=== PATIENT | female | born 1930 | race Caucasian/White ===

== ENCOUNTER 2017-04-22 07:24 | Emergency (ER) | payer MEDICARE ==
[~2017-04-22] VITALS: Ht 167.6 cm; Wt 72.6 kg
[2017-04-22] MEDS ORDERED: LEVO25TA5 (07:56)
[2017-04-22] MEDS ORDERED: ACYC800T (07:56)
[2017-04-22] MEDS ORDERED: CEPH500C (07:56)
[2017-04-22 07:58] LABS: BASOPHILS % (AUTO) 0 % (0-10); EOSINOPHILS # (AUTO) 0.1 10^3/uL (0.0-0.3); EOSINOPHILS % (AUTO) 1 % (0-10); LYMPHOCYTES # (AUTO) 1.5 X 10^3 (1.0-4.0); LYMPHOCYTES % (AUTO) 14 % (12-44); MEAN CORPUSCULAR HEMOGLOBIN 29 PG (25-34); MEAN CORPUSCULAR HGB CONC 33 G/DL (32-36); MEAN CORPUSCULAR VOLUME 88 FL (80-99); MEAN PLATELET VOLUME 10.5 FL (7.4-10.4); MONOCYTES % (AUTO) 9 % (0-12); NEUTROPHILS # (AUTO) 8.5 X 10^3 (1.8-7.8); NEUTROPHILS % (AUTO) 76 % (42-75); PLATELET COUNT 273 10^3/uL (130-400); RED BLOOD COUNT 4.25 10^6/uL (4.35-5.85); RED CELL DISTRIBUTION WIDTH 13.6 % (10.0-14.5); WHITE BLOOD COUNT 11.2 10^3/uL (4.3-11.0)
[2017-04-22 08:10] LABS: ALANINE AMINOTRANSFERASE 10 U/L (0-55); ALBUMIN 3.5 GM/DL (3.2-4.5); AMYLASE 34 U/L (25-125); ANION GAP 11 MMOL/L (5-14); ASPARTATE AMINO TRANSFERASE 12 U/L (5-34); BILIRUBIN,TOTAL 0.6 MG/DL (0.1-1.0); BLOOD UREA NITROGEN 20 MG/DL (7-18); BUN/CREATININE RATIO 22; CALCIUM 8.9 MG/DL (8.5-10.1); CARBON DIOXIDE 21 MMOL/L (21-32); CHLORIDE 106 MMOL/L (98-107); CREATININE SERUM 0.92 MG/DL (0.60-1.30); GFR ESTIMATED 57; GLUCOSE 115 MG/DL (70-105); LIPASE 4 U/L (8-78); POTASSIUM 3.9 MMOL/L (3.6-5.0); SODIUM 138 MMOL/L (135-145); TOTAL PROTEIN 6.9 GM/DL (6.4-8.2)
[2017-04-22 08:17] LABS: MYOGLOBIN SERUM 68.5 NG/ML (10.0-92.0); TROPONIN I < 0.30 NG/ML (<0.30)
--- NOTE | 2017-04-22 08:23 | Diagnostic Imaging Report ---
INDICATION: Chest discomfort. COMPARISON: 05/02/2015. FINDINGS: Right lower lobe patchy airspace consolidations. A small right pleural effusion is present. No pneumothorax. Heart is borderline enlarged. IMPRESSION: 1. Right basilar patchy opacities may relate to aspiration or pneumonia. 2. Small right pleural effusion is present. Dictated by: Dictated on workstation # [id number]
[2017-04-22 08:38] LABS: BILIRUBIN,URINE NEGATIVE (NEGATIVE); KETONES,URINE 2+ (NEGATIVE); LEUKOCYTE ESTERASE ,URINE 1+ (NEGATIVE); NITRITE,URINE NEGATIVE (NEGATIVE); PH,URINE 5 (5-9); PROTEIN,URINE NEGATIVE (NEGATIVE); UROBILINOGEN,URINE NORMAL (NORMAL)
--- NOTE | 2017-04-22 08:50 | ED General ---
General Chief Complaint: Chest Pain Stated Complaint: CHEST DISCOMFORT,LABORED BREATHING Nursing Triage Note: WOKE UP TUESDAY AM WITH CHEST PAIN THAT RADIATED INTO HER NECK AND COLLAR BONE. ON TUE THE PAIN MOVED TO HER BACK. SEEN AT [facility] OFFICE ON TUESDAY AND GIVEN A SCRIPT FOR SHINGLES AND A UTI. PT DID NOT START ANTIBIOTIC BECAUSE SHE DOES NOT THINK SHE HAS A UTI. TODAY STATES IT HURTS TO TAKE A DEEP BREATH AND TO LAY DOWN. Nursing Sepsis Screen: No Definite Risk Source of Information: Patient (TALKS NON-STOP AT LENGTH), Family (DAUGHTER) History of Present Illness Time Seen by Provider: 07:45 Initial Comments PT ARRIVES VIA POV WITH DAUGHTER (DAUGHTER WORKS IN DR. SMALL' OFFICE) PT STATES ON TUESDAY AT 0300 SHE "HURT ALL OVER" POINTING TO ENTIRE CHEST-- STATES " I COULDN'T WAKE UP -LIKE I WAS HAVING A DREAM" BUT HAD TO SIT UP IN CHAIR ALL NIGHT--COULD NOT LAY DOWN DUE TO DISCOMFORT STATES SHE HAS HAD BURNING PAIN IN HER RIGHT SHOULDER BLADE FOR SEVERAL WEEKS STATES LAST NIGHT SHE BEGAN HAVING PAIN IN LATERAL RIGHT NECK--WORSE WITH DEEP BREATHS--NO PAIN NOW HAS HAD PAIN IN MID CHEST ALL NIGHT AND COULD NOT SLEEP AT ALL LAST NIGHT AND HAD TO SIT UP IN A CHAIR ALL NIGHT ALSO HAS HAD SHARP/INTERMITTENT PAIN IN RIGHT LOWER/LATERAL AND POSTERIOR RIBS-- WORSE WITH COUGHING COUGHED A COUPLE OF TIMES YESTERDAY, BUT OTHERWISE NO SIGNIFICANT COUGH. NO FEVER CANNOT STATE IF SHE IS ACTUALLY SHORT OF BREATH OR NOT, BUT DOES NOT THINK SO. NO SWELLING IN LEGS/FEET OR PAIN IN CALVES. NO RECENT TRAVEL/PROLONGED SITTING, ETC. SEEN BY SUPERVISOR CURING ROOM AT DR. 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 QUAN Allergies and Home Medications Allergies Coded Allergies: No Known Drug Allergies (Unverified , 04/22/17) Home Medications Acyclovir 800 Mg Tablet, (Reported) Apixaban 5 Mg Tablet, 10 MG PO BID, #70 2 TABLETS TWICE DAILY X 7 DAYS, THEN TAKE 1 PILL TWICE A DAY Prescribed by: ELAN HICKMAN on 04/22/17 1048 Cefdinir 300 Mg Capsule, 300 MG PO BID, #20 Prescribed by: ELAN HICKMAN on 04/22/17 1048 Cephalexin 500 Mg Capsule, (Reported) Famotidine 40 Mg Tablet, 40 MG PO DAILY, #30 Prescribed by: ELAN HICKMAN on 04/22/17 1048 Hydrocodone/Acetaminophen 1 Each Tablet, 1 EACH PO Q4H, #20 Prescribed by: ELAN HICKMAN on 04/22/17 1048 Levothyroxine Sodium 25 Mcg Tablet, (Reported) Constitutional: no symptoms reported, No chills, No diaphoresis, No dizziness, No fever EENTM: no symptoms reported Respiratory: see HPI, cough, orthopnea (??), No phlegm, No short of breath, No wheezing Cardiovascular: see HPI, chest pain, No edema, No palpitations, No syncope Gastrointestinal: no symptoms reported, No abdominal pain, No nausea, No vomiting Genitourinary: no symptoms reported Musculoskeletal: see HPI, back pain Skin: no symptoms reported, No rash Psychiatric/Neurological: See HPI, Anxiety, Denies Headache, Denies Numbness, Denies Paresthesia, Denies Seizure, Denies Tingling, Denies Weakness Hematologic/Lymphatic: No Symptoms Reported Immunological/Allergic: no symptoms reported Past Ilppacp-Ojvlom-Lnvyth Hx Patient Social History Alcohol Use: Denies Use Recreational Drug Use: No Smoking Status: Never a Smoker Recent Foreign Travel: No Contact w/Someone Who Travel: No Recent Infectious Disease Expo: No Recent Hopitalizations: No Surgeries History of Surgeries: Yes Surgeries: Gallbladder, Hysterectomy Respiratory History of Respiratory Disorde: No Cardiovascular History of Cardiac Disorders: No Neurological History of Neurological Disord: No Genitourinary History of Genitourinary Disor: No Gastrointestinal History of Gastrointestinal Di: No Musculoskeletal History of Musculoskeletal Dis: No Endocrine History of Endocrine Disorders: Yes Endocrine Disorders: Hypothyroidsim HEENT History of HEENT Disorders: No Cancer History of Cancer: No Psychosocial History of Psychiatric Problem: No Integumentary History of Skin or Integumenta: No Physical Exam Vital Signs Vital Sign - Last 12Hours 04/22/17 04/22/17 07:26 11:35 Temp 98.0 Pulse 96 Resp 18 B/P (MAP) 132/64 Pulse Ox 94 O2 Delivery Room Air Capillary Refill : Less Than 3 Seconds General Appearance: No Apparent Distress, WD/WN, Anxious HEENT: PERRL/EOMI, TMs Normal, Normal ENT Inspection, Pharynx Normal Neck: Full Range of Motion, Normal Inspection, Non Tender, Supple, No Carotid Bruit, No JVD Respiratory: Chest Non Tender, Normal Breath Sounds, No Accessory Muscle Use, No Respiratory Distress Cardiovascular: Regular Rate, Rhythm, No Edema, No JVD, No Murmur, Normal Peripheral Pulses Gastrointestinal: Normal Bowel Sounds, No Organomegaly, No Pulsatile Mass, Non Tender, Soft Back: Normal Inspection, No CVA Tenderness, No Vertebral Tenderness Extremity: Normal Capillary Refill, Normal Inspection, Normal Range of Motion, Non Tender, No Calf Tenderness, No Pedal Edema Neurologic/Psychiatric: Alert, Oriented x3, No Motor/Sensory Deficits, 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 II- 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 Norm as Tested Skin: Normal Color, Warm/Dry, No Rash Progress/Results/Core Measures Suspected Sepsis Recent Fever Within 48 Hours: No Infection Criteria Present: None New/Unexplained Altered Menta: No Sepsis Screen: No Definite Risk Sepsis Diagnosis: SIRS Temperature:98.0 Pulse: 96 Respiratory Rate: 18 Laboratory Tests 04/22/17 07:40: White Blood Count 11.2H Blood Pressure 132 /64 Mean: 86 Laboratory Tests 04/22/17 07:40: Creatinine 0.92, Platelet Count 273, Total Bilirubin 0.6 04/22/17 08:16: INR Comment 1.0 Results/Orders Lab Results Laboratory Tests Test 04/22/17 07:40 04/22/17 08:16 04/22/17 08:30 04/22/17 09:16 Range/Units White Blood Count 11.2 H 4.3-11.0 10^3/uL Red Blood Count 4.25 L 4.35-5.85 10^6/uL Hemoglobin 12.3 11.5-16.0 G/DL Hematocrit 37 35-52 % Mean Corpuscular Volume 88 80-99 FL Mean Corpuscular Hemoglobin 29 25-34 PG Mean Corpuscular Hemoglobin Concent 33 32-36 G/DL Red Cell Distribution Width 13.6 10.0-14.5 % Platelet Count 273 130-400 10^3/uL Mean Platelet Volume 10.5 H 7.4-10.4 FL Neutrophils (%) (Auto) 76 H 42-75 % Lymphocytes (%) (Auto) 14 12-44 % Monocytes (%) (Auto) 9 0-12 % Eosinophils (%) (Auto) 1 0-10 % Basophils (%) (Auto) 0 0-10 % Neutrophils # (Auto) 8.5 H 1.8-7.8 X 10^3 Lymphocytes # (Auto) 1.5 1.0-4.0 X 10^3 Monocytes # (Auto) 1.0 0.0-1.0 X 10^3 Eosinophils # (Auto) 0.1 0.0-0.3 10^3/uL Basophils # (Auto) 0.0 0.0-0.1 10^3/uL Sodium Level 138 135-145 MMOL/L Potassium Level 3.9 3.6-5.0 MMOL/L Chloride Level 106 98-107 MMOL/L Carbon Dioxide Level 21 21-32 MMOL/L Anion Gap 11 5-14 MMOL/L Blood Urea Nitrogen 20 H 7-18 MG/DL Creatinine 0.92 0.60-1.30 MG/DL Estimat Glomerular Filtration Rate 57 BUN/Creatinine Ratio 22 Glucose Level 115 H 70-105 MG/DL Calcium Level 8.9 8.5-10.1 MG/DL Magnesium Level 2.0 1.8-2.4 MG/DL Total Bilirubin 0.6 0.1-1.0 MG/DL Aspartate Amino Transf (AST/SGOT) 12 5-34 U/L Alanine Aminotransferase (ALT/SGPT) 10 0-55 U/L Alkaline Phosphatase 63 40-136 U/L Myoglobin 68.5 10.0-92.0 NG/ML Troponin I < 0.30 <0.30 NG/ML B-Type Natriuretic Peptide 34.8 <100.0 PG/ML Total Protein 6.9 6.4-8.2 GM/DL Albumin 3.5 3.2-4.5 GM/DL Amylase Level 34 25-125 U/L Lipase 4 L 8-78 U/L Prothrombin Time 13.4 12.2-14.7 SEC INR Comment 1.0 0.8-1.4 Activated Partial Thromboplast Time 20 L 24-35 SEC Urine Color YELLOW Urine Clarity CLEAR Urine pH 5 5-9 Urine Specific [place] 1.015 L 1.016-1.022 Urine Protein NEGATIVE NEGATIVE Urine Glucose (UA) NEGATIVE NEGATIVE Urine Ketones 2+ H NEGATIVE Urine Nitrite NEGATIVE NEGATIVE Urine Bilirubin NEGATIVE NEGATIVE Urine Urobilinogen NORMAL NORMAL MG/DL Urine Leukocyte Esterase 1+ H NEGATIVE Urine RBC (Auto) 3+ H NEGATIVE Urine RBC NONE /HPF Urine WBC 10-25 H /HPF Urine Squamous Epithelial Cells 25-50 H /HPF Urine Renal Epithelial Cells 2-5 /HPF Urine Crystals NONE /LPF Urine Bacteria MODERATE H /HPF Urine Casts PRESENT /LPF Urine Hyaline Casts 5-10 H /LPF Urine Mucus SMALL H /LPF Urine Culture Indicated YES Erythrocyte Sedimentation Rate 60 H 0-30 MM/HR Micro Results Microbiology 04/22/17 Urine Culture - Preliminary, Resulted My Orders Orders - ELAN HICKMAN DO Ekg Tracing (04/22/17 07:42) Continuous Ekg Monitoring (04/22/17 07:42) Troponin I (04/22/17 07:50) Chest 1 View, Ap/Pa Only (04/22/17 07:50) Saline Lock/Iv-Start (04/22/17 07:50) Monitor-Rhythm Ecg Trace Only (04/22/17 07:50) Cbc With Automated Diff (04/22/17 07:50) Magnesium (04/22/17 07:50) Comprehensive Metabolic Panel (04/22/17 07:50) Myoglobin Serum (04/22/17 07:50) Protime With Inr (04/22/17 07:50) Partial Thromboplastin Time (04/22/17 07:50) O2 (04/22/17 07:50) Saline Lock/Iv-Start (04/22/17 07:50) Lipase (04/22/17 07:50) Amylase (04/22/17 07:50) BNP (04/22/17 07:50) Ua Culture If Indicated (04/22/17 08:17) Erythrocyte Sedimentation Rate (04/22/17 08:19) Ct Angio Chest W (04/22/17 08:58) Urine Culture (04/22/17 08:30) Iohexol Injection (Omnipaque 350 Mg/Ml 1 (04/22/17 10:00) Sodium Chloride Flush (Catheter Flush Sy (04/22/17 10:00) Ns (Ivpb) (Sodium Chloride 0.9% Ivpb Bag (04/22/17 10:00) Pharmacy Communication (Pharmacy Communi (04/22/17 10:00) Saline Lock/Iv-Start (04/22/17 10:14) Ns Iv 1000 Ml (Sodium Chloride 0.9%) (04/22/17 10:14) Enoxaparin Injection (Lovenox Injection) (04/22/17 10:30) Medications Given in ED Vital Signs/I&O Capillary Refill : Less Than 3 Seconds Blood Pressure Mean: 86 Progress Note : Progress Note UNEVENTFUL ER STAY ALL VITALS REMAINED STABLE, O2 SATS IN MID TO UPPER 90'S NO C/O CHEST DISCOMFORT OR SHORTNESS OF BREATH DURING ER STAY ECG Initial ECG Impression Time: 07:34 Initial ECG Rate: 101 Initial ECG Rhythm: Normal Sinus Initial ECG Impression: Nonspecific Changes Initial ECG Comparisson: No Previous ECG Available Diagnostic Imaging Comments CXR--RIGHT BASILAR PATCHY INFILTRATE--ASPIRATION OR PNEUMONIA, SMALL RIGHT PLEURAL EFFUSION--PER RADIOLOGIST REPORT @ 0850 CT CHEST ANGIOGRAM--P.E. IN RLL, WITH EFFUSION VS ATELECTASIS VS EARLY INFARCT-- PER RADIOLOGIST VIA PHONE AT 1017 Reviewed: Reviewed by Me, Discussed w/Radiologist Departure Communication (Admissions) Family Conversation DAUGHTER STATES THAT IF HER INSURANCE DOES NOT COVER [place], THAT SHE CAN GET SAMPLES FROM DR. 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 VU'S CELL 1026--SPOKE WITH DR. VU, ADVISES ELIQUIS AND HAVE PT FOLLOW UP WITH DR. QUAN ON TUESDAY, PT DOES NOT MEET ADMISSION CRITERIA AT THIS TIME. PT IS ASYMPTOMATIC AND ALL VITALS ARE STABLE 1030--SPOKE WITH DR. QUAN. SHE WILL SEE PT IN OFFICE ON TUESDAY. Impression Impression: Primary Impression: Right pulmonary embolus Additional Impression: UTI (urinary tract infection) Disposition: 01 HOME, SELF-CARE Condition: Stable Departure-Patient Inst. Referrals: FLORENCE QUAN MD (PCP/Family) Primary Care Physician Patient Instructions: Pulmonary Embolism (Blood Clot in the Lungs) (DC), Urinary Tract Infection, Adult (DC) Add. Discharge Instructions: HOME, REST FOLLOW UP WITH DR. QUAN ON TUESDAY FOR FURTHER CARE RETURN TO ER IF SYMPTOMS WORSEN All discharge instructions reviewed with patient and/or family. Voiced understanding. Scripts Famotidine (Pepcid) 40 Mg Tablet 40 MG PO DAILY, #30 TAB Prov: ELAN HICKMAN DO 04/22/17 Cefdinir (Cefdinir) 300 Mg Capsule 300 MG PO BID for FOR INFECTION, #20 CAP Prov: ELAN HICKMAN DO 04/22/17 Hydrocodone/Acetaminophen (Hydrocodon -Acetaminophen 5-325) 1 Each Tablet 1 EACH PO Q4H, #20 TAB Prov: ELAN HICKMAN DO 04/22/17 Apixaban (Eliquis) 5 Mg Tablet 10 MG PO BID, #70 TAB 2 TABLETS TWICE DAILY X 7 DAYS, THEN TAKE 1 PILL TWICE A DAY Prov: ELAN HICKMAN DO 04/22/17 ELAN HICKMAN DO Apr 22, 2017 08:50
[2017-04-22 08:54] LABS: PROTHROMBIN TIME PATIENT 13.4 SEC (12.2-14.7)
[2017-04-22 09:05] LABS: SQUAMOUS EPITHELIAL CELL,UR 25-50 /HPF
[2017-04-22] MEDS ORDERED: CATHETER FLUSH 10 ML SYR IV PRN (10:00)
[2017-04-22] MEDS ORDERED: IOHEXOL 350 MG/ML 100 ML (OMNIPAQUE 350) VIAL IV ONE (10:00)
[2017-04-22] MEDS ORDERED: NS 100 ML (IVPB) BAG IV ONE (10:00)
[2017-04-22] MEDS ORDERED: NS IV 1000 ML 1,000 ML IV ONE (10:14)
--- NOTE | 2017-04-22 10:28 | Diagnostic Imaging Report ---
PROCEDURE: CT angiography of the chest with contrast. TECHNIQUE: Multiple contiguous axial images were obtained through the chest after uneventful bolus administration of intravenous contrast. Reconstructed CTA MIP acquisitions were also performed. INDICATION: Chest pain. Possible pulmonary embolus. COMPARISON: None FINDINGS: There is a large intraluminal thrombus seen within the right lower lobe segmental arteries particularly the posterior medial branches. No additional embolus is seen. There is a small right pleural effusion. There is mild right basilar atelectasis or infiltrate. There is mild bronchiectasis noted particularly to the lower lobes bilaterally. There is pleural-parenchymal scarring in the lung apices. There is no pneumothorax. There is no adenopathy. There is a small hiatal hernia. No acute abnormalities seen in the visualized abdomen. No acute osseous abnormality is suspected IMPRESSION: 1. There is pulmonary embolus to segmental basilar branches of the right lower lobe. There is a small right pleural effusion with right basilar airspace disease, possibility of atelectasis, infiltrate or developing infarct. 2. Mild bilateral bronchiectasis, particularly to the lower lobes. Pleural parenchymal scarring in the lung apices bilaterally. 3. Small hiatal hernia. Findings were phoned to Dr. Bishop at 10:19 AM on 04/22/[address] Lena Coelho Dictated by: Dictated on workstation # [id number]
[2017-04-22] MEDS ORDERED: ENOXAPARIN 80 MG/0.8 ML (LOVENOX) SYR SC ONE (10:30)
[2017-04-22] MEDS ORDERED: APIX5TAB PO (10:48)
[2017-04-22] MEDS ORDERED: CEFD300C3 PO (10:48)
[2017-04-22] MEDS ORDERED: FAMO40TA72 PO (10:48)
[2017-04-22] MEDS ORDERED: HYDR-3812 PO (10:48)
[2017-04-22 11:35] VITALS: BP 134/72
== END 2017-04-22 11:35 | disposition home or self-care (01) ==
LOC: EDUNIT# 07:24 → ER 07:27
DX: I26.99 Other pulmonary embolism without acute cor pulmonale (principal); N39.0 Urinary tract infection, site not specified; E03.9 Hypothyroidism, unspecified; Z79.01 Long term (current) use of anticoagulants; Z90.710 Acquired absence of both cervix and uterus
CPT/HCPCS: 36415; 71010; 71275; 80053; 81000; 82150; 83690; 83735; 83874; 83880; 84484; 85025; 85610; 85652; 85730; 87088; 93041

== ENCOUNTER → 2017-04-27 | Outpatient (CLI) | payer MEDICARE ==
[~2017-04-27] MED LIST: ACYC800T; APIX5TAB PO; CEFD300C3 PO; CEPH500C; FAMO40TA72 PO; HYDR-3812 PO; LEVO25TA5
--- NOTE | 2017-04-27 11:08 | Diagnostic Imaging Report ---
EXAMINATION: Left lower extremity duplex venous ultrasound. TECHNIQUE: DVT protocol. Multiple sonographic images with color Doppler and waveform interrogation were performed of the left lower extremity veins with compression and augmentation maneuvers. INDICATION: Left leg pain. FINDINGS: The left lower extremity veins from the groin to below the knee veins were examined with normal color-flow, compressibility and waveform demonstrated. The great saphenous vein is patent. IMPRESSION: No evidence of DVT in the left lower extremity. Dictated by: Dictated on workstation # [id number]
--- NOTE | 2017-04-27 11:42 | Diagnostic Imaging Report ---
PROCEDURE: US Carotid Duplex Bilateral. TECHNIQUE: Multiple real-time grayscale images were obtained over the carotid arteries in various projections bilaterally. Additional duplex Doppler and color Doppler images were also obtained. INDICATION: Right neck pain. FINDINGS: There is minimal atherosclerotic plaque seen in the carotid arteries on grayscale images. Color Doppler demonstrates patency of the common, internal and external carotid arteries. There is antegrade flow noted in the vertebral arteries bilaterally. Peak systolic velocities in the right ICA are 87, 79, and 64 cm/s and on the left side 83, 115, and 94 cm/s. ICA/CCA ratios are up to 1.2 on the right and up to 1 on the left. IMPRESSION: Mild atherosclerotic plaque in the carotid arteries with estimated underlying stenosis in the range of 0-40% bilaterally. Dictated by: Dictated on workstation # [id number]
== END ==
LOC: RAD 09:38
PROVIDERS: ATTEND Nurse Practitioner Family
DX: M79.605 Pain in left leg (principal); I65.23 Occlusion and stenosis of bilateral carotid arteries; E78.2 Mixed hyperlipidemia
CPT/HCPCS: 93880

== ENCOUNTER → 2017-04-29 | Outpatient (CLI) | payer MEDICARE | LOC: CARD 10:59 | PROVIDERS: ATTEND Nurse Practitioner Family | DX: I26.99 Other pulmonary embolism without acute cor pulmonale (principal) | CPT/HCPCS: 93306 ==

== ENCOUNTER → 2017-04-29 | Outpatient (CLI) | payer MEDICARE ==
--- NOTE | 2017-04-29 16:40 | Diagnostic Imaging Report ---
PROCEDURE: US right lower extremity venous. TECHNIQUE: Multiple real-time grayscale images were obtained over the right lower extremity in various projections. Additional duplex Doppler and color Doppler images were also obtained. INDICATION: History of recent PE. Right leg pain. COMPARISON: 04/27/2017. FINDINGS: Color Doppler imaging shows normal color flow enhancement from external iliac vein throughout the lower extremity on the right to the ankle. Calf compression shows normal augmentation of flow at the popliteal level. No evidence of popliteal cyst. IMPRESSION: No evidence of developing venous thrombosis right lower extremity. Dictated by: Dictated on workstation # [id number]
== END ==
LOC: RAD 11:00
PROVIDERS: ATTEND Internal Medicine Cardiovascular Disease
DX: M79.604 Pain in right leg (principal); Z86.711 Personal history of pulmonary embolism

== ENCOUNTER → 2017-05-02 | Outpatient (CLI) | payer MEDICARE | LOC: CARD 11:37 | PROVIDERS: ATTEND Internal Medicine Cardiovascular Disease | DX: I26.99 Other pulmonary embolism without acute cor pulmonale (principal); R07.89 Other chest pain; Z86.39 Personal history of other endocrine, nutritional and metabolic disease | CPT/HCPCS: 93225; 93226 ==

== ENCOUNTER → 2017-05-18 | Outpatient (CLI) | payer MEDICARE ==
--- NOTE | 2017-05-19 08:34 | Diagnostic Imaging Report ---
Bilateral screening mammogram 2D views with tomosynthesis The current study was also evaluated with a Computer Aided Detection (CAD) system. Indication: Screening. No current complaints stated on the questionnaire. COMPARISON: 03/13/2015. Findings: The breasts are composed of scattered fibroglandular densities. There are occasional benign-appearing calcifications Allowing for technique and positional differences, no suspicious change is seen. IMPRESSION: No significant change. ACR BI-RADS Category 2: Benign findings. Result letter will be mailed to the patient. Note: At least 10% of breast cancer is not imaged by mammography. Dictated by: Dictated on workstation # [id number]
== END ==
LOC: RAD 08:51
PROVIDERS: ATTEND Internal Medicine Hematology & Oncology
DX: Z12.31 Encounter for screening mammogram for malignant neoplasm of breast (principal); I26.99 Other pulmonary embolism without acute cor pulmonale
CPT/HCPCS: 77067

== ENCOUNTER 2017-06-03 05:29 | Outpatient (CLI) | payer MEDICARE ==
[~2017-06-03] VITALS: Ht 167.6 cm; Wt 72.6 kg
[~2017-06-03 05:29] MED LIST changes: +ACHD5005 PO; -HYDR-3812 PO; -LEVO25TA5; +LEVO25TA5 PO
[2017-06-03] MEDS ORDERED: FAMO40TA6 PO (14:56)
[2017-06-03] MEDS ORDERED: APIX5TAB PO (14:56)
== END 2017-06-03 14:57 ==
LOC: PREOP 05:29
PROVIDERS: ATTEND Internal Medicine
DX: Z01.818 Encounter for other preprocedural examination (principal); Z12.11 Encounter for screening for malignant neoplasm of colon

== ENCOUNTER 2017-06-10 06:54 | Day surgery (SDC) | payer MEDICARE ==
[~2017-06-10] VITALS: Ht 167.6 cm; Wt 72.6 kg
[~2017-06-10 06:54] MED LIST changes: +FAMO40TA6 PO
[2017-06-10] MEDS ORDERED: 1/2 NS IV SOLUTION 1,000 ML IV ONE ×2 (06:56→07:47)
--- OUTSIDE RECORDS SUMMARY | 2017-06-10 06:59 | XMS REPORT | Continuity of Care Document ---
Author Author [facility] Organization [facility] Address Unknown Phone Unavailable Allergies Active Description Code Type Severity Reaction Onset Reported/Identified Relationship to Patient Clinical Status Yes No Known Drug Allergies [id number] Drug Allergy Unknown N/A 04/22/2017 Medications There is no data. Problems Date Dx Coded Attending Type Code Diagnosis Diagnosed By 12/13/2013 FLORENCE QUAN MD Ot 724.3 SCIATICA 12/13/2013 FLORENCE QUAN MD Ot 729.5 PAIN IN LIMB 12/13/2013 FLORENCE QUAN MD Ot V57.1 PHYSICAL THERAPY NEC 03/13/2015 Ot V76.12 03/31/2015 SHIVAM GARCIA SUPPLY CRIB ATTENDANT Ot E66.9 03/31/2015 SHIVAM GARCIA SUPPLY CRIB ATTENDANT Ot M81.0 03/31/2015 SHIVAM GARCIA SUPPLY CRIB ATTENDANT Ot E66.9 03/31/2015 SHIVAM GARCIA SUPPLY CRIB ATTENDANT Ot M81.0 04/02/2015 SHIVAM GARCIAP Ot Z12.31 04/21/2015 SHIVAM GARCIAP Ot E66.9 04/21/2015 SHIVAM GARCIA SUPPLY CRIB ATTENDANT Ot M81.0 04/22/2017 SHIVAM GARCIA SUPPLY CRIB ATTENDANT Ot Z12.31 ENCNTR SCREEN MAMMOGRAM FOR MALIGNANT NE 04/22/2017 SHIVAM GARCIA SUPPLY CRIB ATTENDANT Ot E66.9 OBESITY, UNSPECIFIED 04/22/2017 SHIVAM GARCIA SUPPLY CRIB ATTENDANT Ot M81.0 AGE-RELATED OSTEOPOROSIS W/O CURRENT PAT 04/22/2017 ELAN HICKMAN DO Ot E03.9 HYPOTHYROIDISM, UNSPECIFIED 04/22/2017 TAWNYA HICKMAN DOA K Ot I26.99 OTHER PULMONARY EMBOLISM WITHOUT ACUTE C 04/22/2017 ELAN HICKMAN DO Ot N39.0 URINARY TRACT INFECTION, SITE NOT SPECIF 04/22/2017 ELAN HICKMAN DO K Ot R07.81 PLEURODYNIA 04/22/2017 MARYLOU TAWNYA ALFAROA K Ot Z79.01 WIRE DROPPER (CURRENT) USE OF ANTICOAGULANT 04/22/2017 MARYLOU DO ELAN K Ot Z90.710 ACQUIRED ABSENCE OF BOTH CERVIX AND UTER 04/28/2017 SHIVAM GARCIA SUPPLY CRIB ATTENDANT Ot Z12.31 ENCNTR SCREEN MAMMOGRAM FOR MALIGNANT NE 04/28/2017 SHIVAM GARCIAP Ot E66.9 OBESITY, UNSPECIFIED 04/28/2017 SHIVAM GARCIAP Ot M81.0 AGE-RELATED OSTEOPOROSIS W/O CURRENT PAT 04/28/2017 DIEUDONNE JOAQUIN APRN Ot E78.2 MIXED HYPERLIPIDEMIA 04/28/2017 DIEUDONNE JOAQUIN APRN Ot 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 04/28/2017 DIEUDONNE JOAQUIN APRN Ot M79.605 PAIN IN LEFT LEG 04/29/2017 MARYLOU TAWNYA ALFAROA K Ot E03.9 HYPOTHYROIDISM, UNSPECIFIED 04/29/2017 MARYLOU TAWNYA ALFAROA K Ot I26.99 OTHER PULMONARY EMBOLISM WITHOUT ACUTE C 04/29/2017 MARYLOU TAWNYA ALFAROA K Ot N39.0 URINARY TRACT INFECTION, SITE NOT SPECIF 04/29/2017 MARYLOU TAWNYA ALFAROA K Ot R07.81 PLEURODYNIA 04/29/2017 MARYLOU TAWNYA ALFRAOA K Ot Z79.01 WIRE DROPPER (CURRENT) USE OF ANTICOAGULANT 04/29/2017 MARYLOU DO ELAN K Ot Z90.710 ACQUIRED ABSENCE OF BOTH CERVIX AND UTER 04/29/2017 MAUREEN AUSTIN FACC, ALI FACP CCDS Ot R07.89 OTHER CHEST PAIN 04/29/2017 MAUREEN AUSTIN FACC, ALI FACP CCDS Ot R07.89 OTHER CHEST PAIN 04/29/2017 SHIVAM GARCIA SUPPLY CRIB ATTENDANT Ot Z12.31 ENCNTR SCREEN MAMMOGRAM FOR MALIGNANT NE 04/29/2017 SHIVAM GARCIAP Ot E66.9 OBESITY, UNSPECIFIED 04/29/2017 SHIVAM GARCIA SUPPLY CRIB ATTENDANT Ot M81.0 AGE-RELATED OSTEOPOROSIS W/O CURRENT PAT 04/29/2017 DIEUDONNE JOAQUIN APRN Ot E78.2 MIXED HYPERLIPIDEMIA 04/29/2017 DIEUDONNE JOAQUIN GERENTOLOGICAL PHYSIOTHERAPIST Ot 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 04/29/2017 DIEUDONNE JOAQUIN APRN Ot M79.605 PAIN IN LEFT LEG 04/29/2017 MAUREEN AUSTIN FACC, ALI FACP CCDS Ot I26.99 OTHER PULMONARY EMBOLISM WITHOUT ACUTE C 04/29/2017 MAUREEN AUSTIN FACC, ALI FACP CCDS Ot R07.89 OTHER CHEST PAIN 05/05/2017 DIEUDONNE JOAQUIN APRN Ot I26.99 OTHER PULMONARY EMBOLISM WITHOUT ACUTE C 05/08/2017 MAUREEN AUSTIN FACC, ALI FACP CCDS Ot I26.99 OTHER PULMONARY EMBOLISM WITHOUT ACUTE C 05/08/2017 MAUREEN AUSTIN FACC, ALI FACP CCDS Ot R07.89 OTHER CHEST PAIN 05/08/2017 MAUREEN AUSTIN FACC, ALI FACP CCDS Ot Z86.39 PERSONAL HISTORY OF ENDO, NUTRITIONAL AN 05/09/2017 DORIS PEREZ MD Ot E03.9 HYPOTHYROIDISM, UNSPECIFIED 05/09/2017 DORIS PEREZ MD Ot I26.99 OTHER PULMONARY EMBOLISM WITHOUT ACUTE C 05/09/2017 DORIS PEREZ MD Ot M19.91 PRIMARY OSTEOARTHRITIS, UNSPECIFIED SITE 05/09/2017 DORIS PEREZ MD Ot Z79.01 WIRE DROPPER (CURRENT) USE OF ANTICOAGULANT 05/09/2017 DORIS PEREZ MD Ot Z79.899 OTHER WIRE DROPPER (CURRENT) DRUG THERAPY 05/18/2017 DIEUDONNE JOAQUIN APRN Ot E78.2 MIXED HYPERLIPIDEMIA 05/18/2017 DIEUDONNE JOAQUIN APRN Ot 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 05/18/2017 DIEUDONNE JOAQUIN APRN Ot M79.605 PAIN IN LEFT LEG 05/24/2017 DIEUDONNE JOAQUIN APRN Ot I26.99 OTHER PULMONARY EMBOLISM WITHOUT ACUTE C 05/25/2017 MAUREEN AUSTIN FACC, ALI FACP CCDS Ot I26.99 OTHER PULMONARY EMBOLISM WITHOUT ACUTE C 05/25/2017 MAUREEN AUSTIN FACC, ALI FACP CCDS Ot R07.89 OTHER CHEST PAIN 05/25/2017 MAUREEN AUSTIN FACC, ALI FACP CCDS Ot Z86.39 PERSONAL HISTORY OF ENDO, NUTRITIONAL AN 05/26/2017 DIEUDONNE JOAQUIN APRN Ot E78.2 MIXED HYPERLIPIDEMIA 05/26/2017 DIEUDONNE JOAQUIN APRN Ot 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 05/26/2017 DIEUDONNE JOAQUIN APRN Ot M79.605 PAIN IN LEFT LEG 05/27/2017 MAUREEN MD FACC, ALI FACP CCDS Ot M79.604 PAIN IN RIGHT LEG 05/27/2017 MAUREEN AUSTIN FACC, ALI FACP CCDS Ot 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 06/03/2017 JEMALDIEUDONNE APRN Ot I26.99 OTHER PULMONARY EMBOLISM WITHOUT ACUTE C 06/03/2017 MAUREEN MD FACC, ALI FACP CCDS Ot I26.99 OTHER PULMONARY EMBOLISM WITHOUT ACUTE C 06/03/2017 MAUREEN AUSTIN FACC, ALI FACP CCDS Ot R07.89 OTHER CHEST PAIN 06/03/2017 MAUREEN AUSTIN FACC, ALI FACP CCDS Ot Z86.39 PERSONAL HISTORY OF ENDO, NUTRITIONAL AN 06/06/2017 YANELY SMALL MD Ot Z01.818 ENCOUNTER FOR OTHER PREPROCEDURAL EXAMIN 06/06/2017 YANELY SMALL MD Ot Z12.11 ENCOUNTER FOR SCREENING FOR MALIGNANT NE 06/08/2017 DORIS PEREZ MD Ot I26.99 OTHER PULMONARY EMBOLISM WITHOUT ACUTE C 06/08/2017 DORIS PEREZ MD Ot Z12.31 ENCNTR SCREEN MAMMOGRAM FOR MALIGNANT NE 06/09/2017 MAUREEN AUSTIN FACZach, ALI FACP CCDS Ot M79.604 PAIN IN RIGHT LEG 06/09/2017 MAUREEN AUSTIN FACC, ALI FACP CCDS Ot 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 Procedures There is no data. Results Test Result Range Complete blood count (CBC) with automated white blood cell (WBC) differential - 04/22/17 07:40 Blood leukocytes automated count (number/volume) 11.2 10*3/uL 4.3-11.0 Blood erythrocytes automated count (number/volume) 4.25 10*6/uL 4.35-5.85 Venous blood hemoglobin measurement (mass/volume) 12.3 g/dL 11.5-16.0 Blood hematocrit (volume fraction) 37 % 35-52 Automated erythrocyte mean corpuscular volume 88 [foz_us] 80-99 Automated erythrocyte mean corpuscular hemoglobin (mass per erythrocyte) 29 pg 25-34 Automated erythrocyte mean corpuscular hemoglobin concentration measurement ( mass/volume) 33 g/dL 32-36 Automated erythrocyte distribution width ratio 13.6 % 10.0-14.5 Automated blood platelet count (count/volume) 273 10*3/uL 130-400 Automated blood platelet mean volume measurement 10.5 [foz_us] 7.4-10.4 Automated blood neutrophils/100 leukocytes 76 % 42-75 Automated blood lymphocytes/100 leukocytes 14 % 12-44 Blood monocytes/100 leukocytes 9 % 0-12 Automated blood eosinophils/100 leukocytes 1 % 0-10 Automated blood basophils/100 leukocytes 0 % 0-10 Blood neutrophils automated count (number/volume) 8.5 10*3 1.8-7.8 Blood lymphocytes automated count (number/volume) 1.5 10*3 1.0-4.0 Blood monocytes automated count (number/volume) 1.0 10*3 0.0-1.0 Automated eosinophil count 0.1 10*3/uL 0.0-0.3 Automated blood basophil count (count/volume) 0.0 10*3/uL 0.0-0.1 Comprehensive metabolic panel - 04/22/17 07:40 Serum or plasma sodium measurement (moles/volume) 138 mmol/L 135-145 Serum or plasma potassium measurement (moles/volume) 3.9 mmol/L 3.6-5.0 Serum or plasma chloride measurement (moles/volume) 106 mmol/L 98-107 Carbon dioxide 21 mmol/L 21-32 Serum or plasma anion gap determination (moles/volume) 11 mmol/L 5-14 Serum or plasma urea nitrogen measurement (mass/volume) 20 mg/dL 7-18 Serum or plasma creatinine measurement (mass/volume) 0.92 mg/dL 0.60-1.30 Serum or plasma urea nitrogen/creatinine mass ratio 22 NRG Serum or plasma creatinine measurement with calculation of estimated glomerular filtration rate 57 NRG Serum or plasma glucose measurement (mass/volume) 115 mg/dL 70-105 Serum or plasma calcium measurement (mass/volume) 8.9 mg/dL 8.5-10.1 Serum or plasma total bilirubin measurement (mass/volume) 0.6 mg/dL 0.1-1.0 Serum or plasma alkaline phosphatase measurement (enzymatic activity/volume) 63 U/L 40-136 Serum or plasma aspartate aminotransferase measurement (enzymatic activity/ volume) 12 U/L 5-34 Serum or plasma alanine aminotransferase measurement (enzymatic activity/volume ) 10 U/L 0-55 Serum or plasma protein measurement (mass/volume) 6.9 g/dL 6.4-8.2 Serum or plasma albumin measurement (mass/volume) 3.5 g/dL 3.2-4.5 Magnesium - 04/22/17 07:40 Magnesium 2.0 mg/dL 1.8-2.4 Serum or plasma troponin i.cardiac measurement (mass/volume) - 04/22/17 07:40 Serum or plasma troponin i.cardiac measurement (mass/volume) < ng/ mL <0.30 Myoglobin, serum - 04/22/17 07:40 Myoglobin, serum 68.5 ng/mL 10.0-92.0 Serum or plasma amylase measurement (enzymatic activity/volume) - 04/22/17 07: 40 Serum or plasma amylase measurement (enzymatic activity/volume) 34 U /L 25-125 Serum or plasma lithium measurement (moles/volume) - 04/22/17 07:40 BNP level 34.8 pg/mL <100.0 Lipase - 04/22/17 07:40 Lipase 4 U/L 8-78 PT panel in platelet poor plasma by coagulation assay - 04/22/17 08:16 Prothrombin time (PT) in platelet poor plasma by coagulation assay 13.4 s 12.2-14.7 INR in platelet poor plasma or blood by coagulation assay 1.0 0.8-1.4 Activated partial thromboplastin time (aPTT) in platelet poor plasma bycoagulation assay - 04/22/17 08:16 Activated partial thromboplastin time (aPTT) in platelet poor plasma bycoagulation assay 20 s 24-35 Complete urinalysis with reflex to culture - 04/22/17 08:30 Urine color determination YELLOW NRG Urine clarity determination CLEAR NRG Urine pH measurement by test strip 5 5-9 Specific gravity of urine by test strip 1.015 1.016- 1.022 Urine protein assay by test strip, semi-quantitative NEGATIVE NEGATIVE Urine glucose detection by automated test strip NEGATIVE NEGATIVE Erythrocytes detection in urine sediment by light microscopy 3+ NEGATIVE Urine ketones detection by automated test strip 2+ NEGATIVE Urine nitrite detection by test strip NEGATIVE NEGATIVE Urine total bilirubin detection by test strip NEGATIVE NEGATIVE Urine urobilinogen measurement by automated test strip (mass/volume) NORMAL NORMAL Urine leukocyte esterase detection by dipstick 1+ NEGATIVE Automated urine sediment erythrocyte count by microscopy (number/high power field) NONE NRG Automated urine sediment leukocyte count by microscopy (number/high power field ) [HPF] NRG Bacteria detection in urine sediment by light microscopy MODERATE NRG Squamous epithelial cells detection in urine sediment by light microscopy 25-50 NRG Crystals detection in urine sediment by light microscopy NONE NRG Casts detection in urine sediment by light microscopy PRESENT NRG Mucus detection in urine sediment by light microscopy SMALL NRG Complete urinalysis with reflex to culture YES NRG Hyaline casts detection in urine sediment by light microscopy 5-10 NRG Renal epithelial cells detection in urine sediment by light microscopy 2-5 NRG Bacterial urine culture - 04/22/17 08:30 URINE CULTURE RESULTS <10,000/ML NRG Erythrocyte sedimentation rate by westergren method - 04/22/17 09:16 Erythrocyte sedimentation rate by westergren method 60 mm 0-30 Encounters ACCT No. Visit Date/Time Discharge Status Pt. Type Provider Facility Loc./Unit Complaint [id number] 06/03/2017 05:29:00 06/03/2017 14:57:00 DIS Outpatient YANELY SMALL MD [facility] PREOP COLONOSCOPY [id number] 05/18/2017 08:51:00 05/18/2017 23:59:59 CLS Outpatient DORIS PEREZ MD [facility] RAD I26.99 PULMONARY EMBOLISM ON RIGHT [id number] 05/06/2017 08:23:00 05/06/2017 23:59:59 CLS Outpatient DORIS PEREZ MD [facility] ONC [id number] 05/02/2017 11:37:00 05/02/2017 23:59:59 CLS Outpatient ELPIDIO REDDY MD, FACC, FACP CCDS [facility] CARD CHEST DISCOMFORT [id number] 04/29/2017 11:00:00 04/29/2017 23:59:59 CLS Outpatient ELPIDIO REDDY MD, FACC, FACP CCDS [facility] RAD PULMONARY EMBOLISM ON RIGHT [id number] 04/29/2017 10:59:00 04/29/2017 23:59:59 CLS Outpatient DIEUDONNE JOAQUIN APRN [facility] CARD I26.99 [id number] 04/27/2017 09:38:00 04/27/2017 23:59:59 CLS Outpatient DIEUDONNE JOAQUIN APRN [facility] RAD E78.2 [id number] 04/22/2017 07:27:00 04/22/2017 11:35:00 DIS Emergency MARYLOU ELAN ALFARO [facility] ER CHEST DISCOMFORT,LABORED BREATHING [id number] 05/02/2015 17:20:00 05/02/2015 23:59:59 CLS Outpatient COLTHARP MARCIAL ALFARO [facility] QUICK [id number] 03/27/2015 11:40:00 03/27/2015 23:59:59 CLS Outpatient SHIVAM GARCIAP [facility] RAD OSTEOPOROSIS [id number] 03/13/2015 10:53:00 03/13/2015 23:59:59 CLS Outpatient SHIVAM GARCIA SUPPLY CRIB ATTENDANT [facility] RAD SCREENING [id number] 11/27/2013 08:34:00 12/13/2013 11:00:00 DIS Outpatient FLORENCE QUAN MD [facility] REHAB SCIATICA,LOWER LEG PAIN L LEG [id number] 06/10/2017 08:00:00 PEN PreadYANELY Ruvalcaba MD [facility] ENDO SCREENING [id number] 05/07/2011 10:31:00 Document Registration
[2017-06-10] MEDS ORDERED: 1/2 NS IV SOLUTION 1,000 ML IV STA (07:04)
[2017-06-10] MEDS ORDERED: MIDAZOLAM 2 MG/2 ML (VERSED) VIAL IVP PRN (07:15)
[2017-06-10] MEDS ORDERED: fentaNYL INJECTION 100 MCG/2 ML AMP IVP PRN (07:15)
[2017-06-10] MEDS ORDERED: LIDOCAINE JELLY 2% (XYLOCAINE) 5 ML TUBE MM PRN (07:15)
[2017-06-10 07:16] VITALS: BP 128/73
[2017-06-10] MEDS ORDERED: MIDAZOLAM 2 MG/2 ML (VERSED) VIAL ONE ×3 (07:50→08:38)
[2017-06-10] MEDS ORDERED: fentaNYL INJECTION 100 MCG/2 ML AMP ONE ×2 (07:50→08:38)
[2017-06-10] MEDS ORDERED: LIDOCAINE JELLY 2% (XYLOCAINE) 5 ML TUBE ONE ×2 (07:50→08:37)
--- NOTE | 2017-06-10 07:55 | Pre-Op Note & Conscious Sedat ---
Pre-Operative Progress Note H&P Reviewed The H&P was reviewed, patient examined and no changes noted. Date H&P Reviewed: Jun 10, 2017 Time H&P Reviewed: 07:54 Conscious Sedation Pre-Proced ASA Class: 2 Airway Mallampati Classification: (nez perce appropriate class) I. II. III, IV Lungs Heart ASA score ASA 1: a normal healthy patient ASA 2: a patient with a mild systemic disease (mid diabetes, controlled hypertension, obesity ASA 3: a patient with a severe systemic disease that limits activity (angina , COPD, prior Myocardial infarction) ASA 4: a patient with an incapacitating disease that is a constant threat to life (CHF, renal failure) ASA 5: a moribund patient not expected to survive 24 hrs. (ruptured aneurysm) ASA 6: a declared brain patient whose organs are being harvested. For emergent operations, add the letter E after the classification Grade 2 Sedation Plan: Analgesia, Amnesia, Plan communicated to team members, Discussed options with patient/fam, Discussed risks with patient/fam Note The patient is an appropriate candidate to undergo the planned procedure, sedation, and anesthesia. The patient immediately re-assessed prior to indication. YANELY SMALL MD Jun 10, 2017 07:55
[2017-06-10 08:50] VITALS: BP 116/50
[2017-06-10 09:10] VITALS: BP 132/64
[2017-06-10 09:20] VITALS: BP 132/64
--- NOTE | 2017-06-10 18:25 | OPERATIVE REPORT ---
DATE OF SERVICE: COLONOSCOPY SUMMARY INDICATION FOR THE PROCEDURE: Screening colon. The patient is referred for screening colonoscopy. She is deemed to be of higher than average risk as she has recently been diagnosed with pulmonary embolism, unprovoked. DESCRIPTION OF PROCEDURE: The patient was placed in left lateral decubitus position. Prior to undergoing colonoscopy, digital rectal evaluation was performed. Anal sphincter tone was normal and the perianal reflex is intact. No abnormalities, no additional inspection of anal canal or distal rectal vault. The colonoscope was then inserted into the rectum and under direct visualization advanced to the cecum. The cecum was identified by identification of ileocecal valve and cecal strap. Photographic documentation was obtained. Careful inspection was made. The patient tolerated procedure well. FINDINGS: There was no evidence for internal or external hemorrhoids and the rectum was unremarkable. A few small sigmoid diverticulum were present without evidence for diverticulitis. Mild haustral hypertrophy is present. The descending colon was unremarkable. Present in the distal transverse colon was a diminutive hyperplastic appearing polyp; due to this patient's advanced age and recent pulmonary embolism with need for anticoagulant therapy, it was left. The remainder of the transverse colon, hepatic flexure, ascending colon and cecum were unremarkable. ASSESSMENT: 1. 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 2. A diminutive hyperplastic polyp was noted in the distal transverse colon. Considering recent pulmonary embolism with need for ongoing anticoagulant therapy and advanced age, risk of bleeding were outweighed by any potential benefit for this patient, so it was left. I would not advocate future screening colonoscopy. I thank you for the referral of this pleasant lady, reassured by today's findings. Job ID: [id number] DocumentID: [id number] Dictated Date: 06/10/2017 09:28:36 Optometric Aide Date: 06/10/2017 14:02:20 Dictated By: YANELY SMALL MD
== END 2017-06-10 09:20 | disposition home or self-care (01) ==
LOC: ENDO 06:54
PROVIDERS: ATTEND Internal Medicine
DX: Z12.11 Encounter for screening for malignant neoplasm of colon (principal); K63.5 Polyp of colon; K57.20 Diverticulitis of large intestine with perforation and abscess without bleeding; E03.9 Hypothyroidism, unspecified; Z86.711 Personal history of pulmonary embolism; Z79.01 Long term (current) use of anticoagulants; Z79.899 Other long term (current) drug therapy

== ENCOUNTER 2017-07-29 08:23 | Outpatient (RCR) | payer MEDICARE ==
[2017-07-29 09:24] LABS: BASOPHILS # (AUTO) 0.1 10^3/uL (0.0-0.1); BASOPHILS % (AUTO) 1 % (0-10); EOSINOPHILS # (AUTO) 0.3 10^3/uL (0.0-0.3); EOSINOPHILS % (AUTO) 5 % (0-10); HEMATOCRIT 42 % (35-52); HEMOGLOBIN 13.8 G/DL (11.5-16.0); LYMPHOCYTES # (AUTO) 1.5 X 10^3 (1.0-4.0); LYMPHOCYTES % (AUTO) 21 % (12-44); MEAN CORPUSCULAR HEMOGLOBIN 28 PG (25-34); MEAN CORPUSCULAR HGB CONC 33 G/DL (32-36); MEAN CORPUSCULAR VOLUME 86 FL (80-99); MEAN PLATELET VOLUME 10.7 FL (7.4-10.4); MONOCYTES # (AUTO) 0.6 X 10^3 (0.0-1.0); MONOCYTES % (AUTO) 8 % (0-12); NEUTROPHILS # (AUTO) 4.6 X 10^3 (1.8-7.8); NEUTROPHILS % (AUTO) 66 % (42-75); PLATELET COUNT 295 10^3/uL (130-400); RED BLOOD COUNT 4.87 10^6/uL (4.35-5.85); WHITE BLOOD COUNT 7.1 10^3/uL (4.3-11.0)
[2017-07-29 09:42] LABS: ALBUMIN 3.8 GM/DL (3.2-4.5); BILIRUBIN,TOTAL 0.4 MG/DL (0.1-1.0); CALCIUM 9.1 MG/DL (8.5-10.1); CREATININE SERUM 0.96 MG/DL (0.60-1.30); POTASSIUM 4.2 MMOL/L (3.6-5.0); TOTAL PROTEIN 6.5 GM/DL (6.4-8.2)
== END 2017-08-04 | disposition home or self-care (01) ==
LOC: ONC 08:23
PROVIDERS: ATTEND Internal Medicine Hematology & Oncology
DX: I26.99 Other pulmonary embolism without acute cor pulmonale (principal); E03.9 Hypothyroidism, unspecified; M19.91 Primary osteoarthritis, unspecified site; Z79.01 Long term (current) use of anticoagulants; Z79.899 Other long term (current) drug therapy
CPT/HCPCS: 36415; 80053; 83615; 85025; 85240; 85307; 85335; 85379; 85610; 85613; 85705; 85730; 86146; 86147; 99213; 99214